=== PATIENT | female | born 1960 | race Caucasian/White ===

== ENCOUNTER 2020-09-20 12:17 | Emergency (ER) | payer MEDICAID ==
[~2020-09-20] VITALS: Ht 170.2 cm; Wt 71.0 kg
[2020-09-20] MEDS ORDERED: NALOXONE 0.4 MG/ML, 1ML IVPush PRN (12:30)
--- NOTE | 2020-09-20 12:49 | NUR ---
LATE ENTRY TASK RN: PT WAS FOUND BY [employer] AND POTENTIALLY OVERDOSED ON A RECENTLY FILLED BENZODIAZAPINE AND OPIATE PRESCRIPTIONS. PER EMS, [facility] DID NOT PLACE PATIENT ON A LEGAL HOLD BECAUSE "THERE WAS NOT ENOUGH EVIDENCE THAT SHE HAD SUICIDAL IDEATION". PER EMS, PT WAS DROWSY BUT HAD A [employer] 15 PRIOR TO ARRIVAL ON SCENE. EN ROUTE TO [facility] ED, PT BECAME MORE OBTUNDED. UPON ARRIVAL TO [facility] ED, PT WAS FOUND TO BE HYPOTENSIVE AND WAS ATTACHED TO ALL VS AND CARDIAC MONITORS. PT NOT ALERT TO PROVIDE ACCURATE HISTORY AT THIS TIME. PIV ACCESS ESTABLISHED BY EMS AND PT WAS BOLUSED EN ROUTE TO OUR FACILITY WITH 400 ML OF NS. UPON ARRIVAL TO [facility] ED, PT IS ABLE TO PROTECT AIRWAY AND IS SATTING 97% ON 5 L NC. PT AROUSES TO PAINFUL STIMULI. DR. MOSS AT FOR PT HISTORY AND ASSESSMENT. FSBS OBTAINED. FSBS 73 ON HOSPITAL GLUCOMETER. PT GIVEN .4 NARCAN IV PER VERBAL ORDERS FROM DR. MOSS. PT BARELY RESPONDED TO MEDICATION BUT STILL ABLE TO PROTECT HER AIRWAY WITH NORMAL VS AT THIS TIME.
[2020-09-20] MEDS ORDERED: SODIUM CHLORIDE 0.9% 1,000ML IVBOLUS ONE (13:00)
--- NOTE | 2020-09-20 13:07 | NUR ---
pt moved to er 3. cooperative yet disorientated. placed on monitor.
--- NOTE | 2020-09-20 13:10 | NUR ---
pt is left side lying, IVF running, sitter in direct contact with patient and able to visualize pt. pt airway is patent, resting with eyes closed on monitor and without oxygen at this time.
[2020-09-20 13:14] LABS: MEAN CORPUSCULAR HEMOGLOBIN 30.3 pg (27.0-34.8); MEAN CORPUSCULAR HGB CONC 33.1 g/dL (32.4-35.8); MEAN PLATELET VOLUME 8.5 fL (7.4-10.4); PLATELET COUNT 345 x10^3/uL (130-400); RED BLOOD COUNT 4.36 x10^6/uL (3.82-5.3); RED CELL DISTRIBUTION WIDTH 15.7 % (9.6-15.2)
[2020-09-20 13:17] LABS: ALBUMIN 3.6 g/dL (3.4-5.0); ANION GAP 10 mmol/L (5-15); CALCIUM 8.2 mg/dL (8.5-10.1); CHLORIDE 116 mmol/L (98-107); SALICYLATE LEVEL < 1.7 mg/dL (2.8-20.0)
[2020-09-20 13:19] LABS: ALANINE AMINOTRANSFERASE 53 U/L (12-78); ALKALINE PHOSPHATASE 68 U/L (45-117); BILIRUBIN,TOTAL 0.3 mg/dL (0.2-1.0); CREATININE 0.51 mg/dL (0.55-1.02); TOTAL PROTEIN 7.4 g/dL (6.4-8.2)
[2020-09-20 13:44] LABS: MD YES
--- NOTE | 2020-09-20 13:46 | NUR ---
pt on bedpan, uroine sample provided. sitter in direct visualization of patient.
[2020-09-20 13:52] LABS: SEG#(MANUAL) 0.78 x10^3/uL (1.8-6.8); SEGS% (MANUAL) 37 % (42-75)
[2020-09-20 13:54] LABS: LYMPHS% (MANUAL) 57 % (22-44); MONOS#(MANUAL) 0.13 x10^3/uL (0.3-2.7); MONOS% (MANUAL) 6 % (2-9)
[2020-09-20 13:56] LABS: AMPHETAMINE SCREEN, URINE Negative (Negative); BARBITURATE SCREEN, URINE Negative (Negative); BENZODIAZEPINE SCREEN, URINE Negative (Negative); CANNABINOID SCREEN, URINE Negative (Negative); COCAINE SCREEN, URINE Negative (Negative); METHADONE SCREEN, URINE Negative (Negative); OPIATE SCREEN, URINE Positive (Negative)
[2020-09-20 14:02] LABS: ANISOCYTOSIS 1+
[2020-09-20 14:03] LABS: MICROSCOPIC NOT IND
[2020-09-20 14:03] LABS: <PLATELET ESTIMATE> ADEQUATE; <PLT MORPHOLOGY> NORMAL PLT MORPH
--- NOTE | 2020-09-20 15:05 | NUR ---
TASK RN: PT SLEEPING IN NAD, VSS. FALL PRECAUTIONS IN PLACE.
--- NOTE | 2020-09-20 15:55 | NUR ---
PT AMBULATED TO RESTROOM WITH ASSISTANCE.
--- NOTE | 2020-09-20 16:56 | NUR ---
pt resting, right side lying, on monitor. pt admits to Dr. Trevizo she drank to much. Pt to be evaluated by psychiatry.
--- NOTE | 2020-09-20 17:02 | NUR ---
PT PLACED ON OXYGEN, DROPPED SATURATION IN SLEEP AGAIN. SITTER AT BEDSIDE.
--- NOTE | 2020-09-20 18:17 | NUR ---
pt awake alert, refuses to eat at this time. diet tray ordered in case she chnages her mind. sitter outside room watching her directly. 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
--- NOTE | 2020-09-20 18:42 | NUR ---
pt awake and alert. pt informs this RN she is receiving chemo on Mondays at [facility]. 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 she is on . sitter outside the room.
--- NOTE | 2020-09-20 18:52 | NUR ---
REPORT RECIEVED FROM NAS HOLLINS
--- NOTE | 2020-09-20 19:04 | NUR ---
PATIENT GIVEN MEAL TRAY, UPDATED ON PLAN OF CARE. PATIENT DENIES ANY ADDITIONAL NEEDS AT THIS TIME. PATIENT IN VIEW OF SITTER. WILL CONTINUE TO MONITOR.
--- NOTE | 2020-09-20 19:31 | NUR ---
PATIENT UPDATED ON PLAN OF CARE. PATIENT GIVEN WARM BLANKETS. UP TO RESTROOM WITHOUT COMPLICATIONS. PATIENT DID NOT URINATE IN HAT IN TOILET. PATIENT WILL NEED TO PROVIDE SAMPLE.
--- NOTE | 2020-09-20 20:30 | NUR ---
PATIENT RESTING IN BED, NO NOTED NEEDS AT THIS TIME. EVEN-UNLABORED RESPIRATIONS NOTED. WILL CONTINUE TO MONITOR. SITTER WITHIN VIEW OF PATIENT.
--- NOTE | 2020-09-20 21:30 | NUR ---
PATIENT RESTING IN BED, NO NOTED NEEDS AT THIS TIME. EVEN-UNLABORED RESPIRATIONS NOTED. WILL CONTINUE TO MONITOR. SITTER WITHIN VIEW OF PATIENT.
--- NOTE | 2020-09-20 22:46 | NUR ---
PATIENT RESTING IN BED, NO NOTED NEEDS AT THIS TIME. EVEN-UNLABORED RESPIRATIONS NOTED. WILL CONTINUE TO MONITOR. SITTER WITHIN VIEW OF PATIENT.
--- NOTE | 2020-09-20 23:40 | NUR ---
PATIENT RESTING IN BED, EVEN-UNLABORED RESPIRATIONS NOTED. VITAL SIGNS STABLE. PATIENT WITHIN VIEW OF SITTER. WILL CONTINUE TO MONITOR.
--- NOTE | 2020-09-21 00:30 | NUR ---
PATIENT RESTING IN BED, NO NOTED ACUTE DISTRESS. VITAL SIGNS STABLE. SITTER WITHIN VIEW OF PATIENT. WILL CONTINUE TO MONITOR.
--- NOTE | 2020-09-21 01:30 | NUR ---
PATIENT RESTING IN BED, NO NOTED ACUTE DISTRESS. VITAL SIGNS STABLE. SITTER WITHIN VIEW OF PATIENT. WILL CONTINUE TO MONITOR.
[2020-09-21 02:06] VITALS: BP 124/76
--- NOTE | 2020-09-21 02:39 | NUR ---
PATIENT UP TO RESTROOM, TOLERATED WELL. VITAL SIGNS STABLE. NO NOTED ACUTE DISTRESS. SITTER WITHIN VIEW OF PATIENT.
--- NOTE | 2020-09-21 03:14 | NUR ---
SPOKE WITH NAS ROOT REGARDING PATIENT ADMISSION TO [facility].
--- NOTE | 2020-09-21 03:45 | NUR ---
STEVO RN: PT ACCEPTED AT [facility]. ACCEPTING DR CROWE
--- NOTE | 2020-09-21 05:04 | NUR ---
Note monisha in ED - 09/21/20 at 0505 by ILAN PATIENT RESTING IN BED, NO NOTED NEEDS AT THIS TIME. PATIENT UPDATED ON PLAN OF CARE BY PROVIDER. PATIENT WILL BE DISCHARGED HOME.
--- NOTE | 2020-09-21 05:05 | NUR ---
PATIENT RESTING IN BED, NO NOTED NEEDS AT THIS TIME. PATIENT IN VIEW OF SITTER. WILL CONTINUE TO MONITOR.
--- NOTE | 2020-09-21 06:21 | NUR ---
PATIENT RESTING IN BED, NO NOTED ACUTE DISTRESS. VITAL SIGNS STABLE. SITTER WITHIN VIEW OF PATIENT. WILL CONTINUE TO MONITOR.
--- NOTE | 2020-09-21 06:59 | NUR ---
REPORT GIVEN TO NAS GRIFFIN
--- NOTE | 2020-09-21 07:05 | NUR ---
REPORT RECIEVED, CARE ASSUMED CARE OF PT AT THIS TIME. PT RESTING ON GURNEY, VISIBLE CHEST RISE AND FALL NOTED. SITTER IN PLACE AND PT IS IN SECURE RM, NAD NOTED
--- NOTE | 2020-09-21 08:08 | NUR ---
PT GIVEN MEAL TRAY. NO OTHER NEEDS AT THIS TIME
--- NOTE | 2020-09-21 09:43 | NUR ---
[facility] HERE FOR TRANSPORT TO [facility], ALL BELONGINGS RETURNED TO PT. PT STABLE ON DC.
== END 2020-09-21 09:48 ==
LOC: ED 16:04
DX: T39.1X2A Poisoning by 4-Aminophenol derivatives, intentional self-harm, initial encounter (principal); T40.2X2A Poisoning by other opioids, intentional self-harm, initial encounter; T42.4X2A Poisoning by benzodiazepines, intentional self-harm, initial encounter; T51.92XA Toxic effect of unspecified alcohol, intentional self-harm, initial encounter; D70.9 Neutropenia, unspecified; F10.129 Alcohol abuse with intoxication, unspecified; Y92.89 Other specified places as the place of occurrence of the external cause; Y90.9 Presence of alcohol in blood, level not specified
CPT/HCPCS: 71045; 80053; 80299; 80307; 80320; 80329; 81003; 82140; 82962; 84703; 85025; 93005; 96361; 96374; 99285; J2310; J7030; 99291; G0480